=== PATIENT | female | born 2005 | race Hispanic/Latino ===

== ENCOUNTER 2024-07-03 16:10 | Emergency (ER) | payer SELFPAY ==
[~2024-07-03] VITALS: Ht 170.2 cm; Wt 127.0 kg
[2024-07-03 16:11] VITALS: BP 151/92
[2024-07-03 16:16] VITALS: PULSE 66; RESP 20; TEMP 98.8; O2SAT 100
--- NOTE | 2024-07-03 17:12 | ERN ---
ED Note History of Present Illness Stated Complaint: ANXIETY Chief Complaint: Anxiety/Panic Attack Time Seen by MD: 16:11 Time Seen by Midlevel: 16:11 Dictation: The patient is a 19-year-old female with a history of depression who presents to the emergency department after having a syncopal episode. Per mother patient was getting blood drawn at [facility] for medication refill when she saw the needle patient heart rate and blood pressure went down causing her to pass out for a few sec. Mother reports lasted about 5 seconds at around 3:30 p.m.. Patient currently just complaints of headache. No other complaints reported. Past Medical History Past Medical History: Anxiety, Bipolar, Depression Surgical History: None LMP: Jun 28, 2024 RN Note Reviewed/Agreed w/PFSH: Yes Review of System Dictation Constitutional: Negative for fever,chills, and weight loss Eyes: Negative for injury, pain,redness, and discharge ENT: Negative for injury,pain or swelling Cardiovascular: Negative for chest pain, palpitations, and edema Respiratory: Negative for shortness of breath, cough, and wheezing, Abdomen/GI: Negative for abdominal pain, nausea, vomiting, diarrhea, and constipation Back: Negative for injury and pain : Negative for injury, bleeding and discharge MS/Extremity: Negative for injury and deformity Skin: Negative for rash, and discoloration Neuro: Negative for weakness, numbness, tingling, and seizure positive for headache, syncope Psych: Negative for suicide ideation, homicidal ideation, and hallucinations Initial Vital Sign VS Vital Signs Date Time Temp Pulse Resp B/P (MAP) Pulse Ox O2 Delivery O2 Flow Rate FiO2 07/03/24 16:11 98.8 66 20 151/92 100 Room Air 0 07/03/24 16:16 21 Physical Exam Dictation Vital Signs reviewed General Appearance: Alert, oriented x 3, no acute distress, well developed, nourished. Head and Face: non-traumatic. Eyes: PERRL, pink conjunctivas, eyelid no trauma, anterior chamber with arcus s enilis. Ears: Pinnas intact and no signs of trauma or erythema ear canals clear and no discharge TM no erythema Nose: No discharge, no bleeding. Oropharynx: Mouth normal, tongue pink. pharynx clear,no erythema, tonsils no exudates, no abscesses noted, mucous membrane moist Neck: Supple, non-tender, no thyromegaly, no masses, no JVD, no bruits Breast:Deferred Chest:No tenderness, no crepitus, no paradoxical movement, no retractions Lungs:Clear, well-ventilated, symmetric, no rales, no wheezing, no rhonchi, no stridor, good breath sounds bilaterally Heart: Regular rate, regular rhythm, no murmur, no gallops Vascular: no peripheral edema, Abdomen: Soft, positive bowel sounds, nondistended, no guarding, nontender, no rebound, no masses no hepatomegaly, no splenomegaly, no Leblanc's sign, no hernias. Rectal: Deferred Genital: Deferred Neurological: Normal speech, motor function intact, sensory function intact , upper extremities equal in strength, lower extremities equal in strength Musculoskeletal: Neck nontender, full range of motion, back nontender, full range of motion, Extremities: nontender, full range of motion Skin: Color pink, dry, no turgor, no rash, no lacerations, no abrasions, no contusions. Lymphatic: Deferred Results (Laboratory/Radiology) Labs Reviewed?: Yes (Sinus rhythm) EKG: (+) rhythm EKG Comment: Date: 07/04/2023 Time:1716 Ventricular rate:60 MD interval:151 QRS duration:95 QT/QTc:441 EKG interpretation: Sinus rhythm Reviewed by ED Attending sinus rhythm no STEMI ED Course ED Course Orders Procedure Category Date Status Time 12 Lead Ekg Tracing- EKG 07/03/24 Logged Technical 16:40 Vital Signs Date Time Temp Pulse Resp B/P (MAP) Pulse Ox O2 Delivery O2 Flow Rate FiO2 07/03/24 16:16 98.8 66 20 100 Room Air* 0 21 07/03/24 16:11 98.8 66 20 151/92 100 Room Air 0 Medical Decision Making MDM The patient is a 19-year-old female with a history of depression who presents to the emergency department after having a syncopal episode. Per mother patient was getting blood drawn at [facility] for medication refill when she saw the needle patient heart rate and blood pressure went down causing her to pass out for a few sec. Mother reports lasted about 5 seconds at around 3:30 p.m.. Patient currently just complaints of headache. No other complaints reported. Patient's symptoms related to a vasovagal response after watching a needle. Patient currently in no acute distress, nontoxic appearance. Neurologically intact. We will be discharged to follow up with PCP. Patient was stable vital signs. Differential diagnosis: Syncope episode, vasovagal response, bradycardia Need for hospitalization: Patient does not meet criteria for hospitalization. There are no social concerns with this patient. DX & DISP Disposition: Discharge Departure Impression: Primary Impression: Vasovagal response Condition: Stable Additional Instructions: Is follow up with your primary doctor in 1-2 days. If symptoms worsen please return to ER. FOLLOW-UP WITH PRIMARY CARE PROVIDER IN 1 TO 2 DAYS. TAKE MEDICATIONS DIRECTED HERE IN THE EMERGENCY ROOM. OKAY TO CONTINUE HOME MEDICATIONS UNLESS OTHERWISE DISCUSSED DURING YOUR VISIT IN THE EMERGENCY ROOM TODAY. RETURN TO YOUR NEAREST EMERGENCY ROOM IF SYMPTOMS WORSEN OR IF THERE IS NO IMPROVEMENT. CALL 911 IF YOU NEED IMMEDIATE ASSISTANCE. TAKE TYLENOL OR MOTRIN [id number] NEEDED AND IF NO CONTRAINDICATIONS ARE PRESENT. INCREASE ORAL HYDRATION. A WOUND CULTURE OR URINE CULTURE WAS ORDERED HERE IN THE EMERGENCY ROOM DEPARTMENT PLEASE FOLLOW-UP WITH PRIMARY CARE PROVIDER AND ADVISE THEM TO GET REPEAT PORTS FROM OUR FACILITY. IF YOU HAD ANY WARREN WRAP/SPLINTS THAT WERE APPLIED HERE, PLEASE DO NOT REMOVE THEM UNTIL YOU SEE YOUR PRIMARY CARE OR SPECIALTY. Referrals: NONE (PCP) Time of Disposition: 17:29 I have reviewed the case, and I agree with, Diagnosis and Plan COYR JONES Jul 03, 2024 17:11
--- NOTE | 2024-07-03 18:51 | EKG ---
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
== END 2024-07-03 17:42 | disposition home or self-care (01) ==
LOC: EDH 16:10
DX: R55 Syncope and collapse (principal); F31.9 Bipolar disorder, unspecified; F41.9 Anxiety disorder, unspecified
CPT/HCPCS: 93005; 99283

== ENCOUNTER 2024-11-08 01:03 | Observation (INO) | payer SELFPAY ==
[2024-11-08] VITALS (7 sets, daily range): BP systolic 105–122; BP diastolic 54–74; PULSE 64–83; RESP 18–19; TEMP 97.7–98.1; O2SAT 94–95
[~2024-11-08] VITALS: Ht 170.2 cm; Wt 81.6 kg
--- NOTE | 2024-11-08 01:12 | ERN ---
General Chief Complaint: Low Back Pain/Injury Stated Complaint: NON TRAUMATIC LOWER BACK PAIN X 3 DAYS Time Seen by MD: 01:05 History of Present Illness Initial Comments 19-year-old obese female with low back pain that she finds incapacitating. Pain is in the middle of the back in the sacral region and also along her bilateral iliac crests. She has never had this kind of back pain before. No trauma. She did move cup of pieces of small furniture around yesterday but she has moved larger things and heavier things before without problems. She has full sensation in her bilateral lower extremities in his continent of stool and urine. Allergies: Coded Allergies: No Known Drug Allergies (Unverified Allergy, Unknown, 11/08/24) Past Medical History Past Medical History: Anxiety, Bipolar, Depression Past Surgical History: None Female( History) LMP: Oct 14, 2024 ROS Dictation Review of systems is negative beyond what is in the chief complaint in the HPI. Physical Exam General Appearance: (+) moderate distress General Appearance comment Patient is lying prone on the hospital bed as this is the only position that she finds comfortable. Orientation: (+) alert, (+) oriented x 3 Head/Face Trauma: No Eye: bilateral eye normal inspection, bilateral eye PERRL, bilateral eye EOMI Ear, Nose, Throat: (+) hearing grossly normal, (+) normal ENT inspection Neck: (+) normal inspection, (+) supple, (+) full range of motion Respiratory: (+) chest non-tender, (+) lungs clear Heart: (+) regular, (+) no gallop Vascular: (+) no edema, (+) normal peripheral pulse Gastrointestinal: (+) soft, (+) non-tender, (+) bowel sound present Back: (+) muscle spasm Back Comment Patient has a extreme muscle tenderness along both iliac crests. Extremities: (+) normal range of motion, (+) non-tender Neurologic/Psychiatric: (+) no motor defecits, (+) no sensory deficits Results Laboratory and Microbiology Lab and Micro Result Laboratory Tests Test 11/08/24 02:49 Urine Color YELLOW (YELLOW) Urine Appearance CLEAR (CLEAR) Urine pH 6.5 (5.0-8.0) Urine Specific [place] 1.031 (1.001-1.031) Urine Protein NEGATIVE mg/dL (NEGATIVE) Urine Glucose (UA) NEGATIVE mg/dL (NEGATIVE) Urine Ketones NEGATIVE mg/dL (NEGATIVE) Urine Occult Blood NEGATIVE (NEGATIVE) Urine Nitrate NEGATIVE (NEGATIVE) Urine Bilirubin NEGATIVE mg/dL (NEGATIVE) Urine Urobilinogen 0.2 mg/dL (0.2-1.0) Urine Leukocyte Esterase NEGATIVE Brian/uL Urine HCG, Qualitative NEGATIVE (NEGATIVE) MDM MDM: Differential diagnosis: Slipped intervertebral disc. Vertebral compression fractures. Spondylolisthesis. Muscle spasm. Lordosis. Rationale: Tests considered and ordered secondary to shared decision making include: Previous outside records reviewed: Old ER visits. Risk of complication and/or morbidity or mortality of patient management: None Medications-Per medication reconciliation Need for hospitalization: Patient does meet criteria for hospitalization. Need for emergency major/minor surgery: No There are no social concerns with this patient. Prescription drug management Prescriptions will include symptomatic care Patient's prior external medical records from other ER visits were reviewed by me as indicated. Prior testing and results from previous visits were reviewed. Prior tests were taken into account with medical decision making and resource utilization, independent historian/historians were used to obtain complete medical history. I independently interpreted the test that were performed, results were reviewed by me and considered findings on radiology if ordered. CT scan shows no fractures it is possible she has some spinal stenosis. In either case the patient can not walk despite multiple injections with muscle relaxants and Toradol and oral narcotics. I have called the hospitalist service and they have admitted her. ED Course Orders Procedure Category Date Status Time Ketorolac 60mg/2ml PHA 11/08/24 Complete (Toradol 60mg/2ml) 01:30 Triamcinolone Acet PHA 11/08/24 Complete 40mg/Ml 1ml (Kenalog 01:30 Orphenadrine Citrate PHA 11/08/24 Complete (Norflex) 01:30 Ct Lumbar Spine W/O CT 11/08/24 Resulted Contrast 01:23 ,Urine Test LAB 11/08/24 Complete 01:59 Urinalysis Profile LAB 11/08/24 Complete 02:35 Morphine 4mg Syg PHA 11/08/24 Complete (Morphine 4mg Syg) 03:00 Morphine 4mg Syg PHA 11/08/24 Complete (Morphine 4mg Syg) 03:00 Lactated Ringers PHA 11/08/24 Complete 1000ml (Lactated 03:30 Oxycodone/Acetamin PHA 11/08/24 Complete 5/325mg Tab (Percocet 04:30 Current Medications Medications (Trade) Dose Ordered Sig/Darrell Route PRN Reason Start Time Stop Time Status Last Admin Dose Admin Ketorolac Tromethamine (toRADol 60MG/ 2ML) 60 mg ONCE ONCE IM 11/08/24 01:30 11/08/24 01:31 DC 11/08/24 01:36 Lactated Ringer's (Lactated Ringers 1000ml) 1,000 ml ONCE ONCE IV 11/08/24 03:30 11/08/24 03:31 DC 11/08/24 03:27 Morphine Sulfate (morPHINE 4MG SYG) 4 mg ONCE ONCE IM 11/08/24 03:00 11/08/24 03:03 DC 11/08/24 03:06 Morphine Sulfate (morPHINE 4MG SYG) 4 mg ONCE ONCE IVP 11/08/24 03:00 11/08/24 02:54 DC Orphenadrine Citrate (Norflex) 60 mg ONCE ONCE IM 11/08/24 01:30 11/08/24 01:31 DC 11/08/24 01:37 Oxycodone/ Acetaminophen (perCOCET) 1 tab ONCE ONCE PO 11/08/24 04:30 11/08/24 04:31 DC 11/08/24 04:33 Triamcinolone Acetonide (Kenalog 40) 40 mg ONCE ONCE IM 11/08/24 01:30 11/08/24 01:31 DC 11/08/24 01:37 Vital Signs Date Time Temp Pulse Resp B/P (MAP) Pulse Ox O2 Delivery O2 Flow Rate FiO2 11/08/24 05:34 98.2 65 16 104/57 99 Room Air* 0 11/08/24 05:33 64 16 111/55 99 Room Air* 0 11/08/24 04:11 73 16 118/70 99 Room Air* 0 11/08/24 03:10 79 16 119/64 99 Room Air* 0 11/08/24 01:04 98.8 85 16 140/77 99 Room Air* 0 11/08/24 01:04 98.8 85 16 140/77 99 Room Air 0 DX & DISP Disposition: Inpatient Departure Impression: Primary Impression: Back pain at L4-L5 level Condition: Stable Referrals: NONE (PCP) ERON SHIRLEY MD Nov 08, 2024 01:12
[2024-11-08] MEDS: TRIAMCINOLONE ACETONIDE 40 MG/ML 1ML VIAL IM ONE (01:37)
[2024-11-08] MEDS: ORPHENADRINE 60MG/2ML IM ONE (01:37)
--- NOTE | 2024-11-08 02:03 | NUR ---
REFUSAL TO SUBMIT TO TREATMENT FOR A URINE TEST PRIOR TO THE ORDERED CT LUMBAR SPINE W/CONTRAST IS SIGNED AND PLACED IN THE PATIENT CHART. RADIOLOGY MADE AWARE.
[2024-11-08 03:02] LABS: APPEARANCE,URINE CLEAR (CLEAR); GLUCOSE, URINE (UA) NEGATIVE (NEGATIVE); LEUKOCYTE ESTERASE ,URINE NEGATIVE Leu/uL (NEGATIVE); NITRATE,URINE NEGATIVE (NEGATIVE); OCCULT BLOOD,URINE NEGATIVE (NEGATIVE)
[2024-11-08 03:10] LABS: ADD UA MICROSCOPIC NO
[2024-11-08] MEDS: LACTATED RINGERS 1000ML IV ONE (03:27)
--- NOTE | 2024-11-08 04:17 | HMCIMG ---
EXAM: CT Lumbar Spine Without IV Contrast CLINICAL HISTORY: Pain. TECHNIQUE: Spiral axial CT images through the lumbar spine were acquired, reconstructed in axial and sagittal projections and imaged using soft tissue and bone algorithms. Reformatted/MPR images were performed. CT scan is done according to ALARA (As Low as Reasonably Achievable). CONTRAST: None. COMPARISON: None provided. FINDINGS: No acute fracture. Mild straightening of the expected lumbar lordosis reflects paraspinal muscle spasm. Normal vertebral body and disc heights. Normal bone density. The surrounding soft tissues are unremarkable. Individual spinal levels are described as follows: T12-L1: No disc bulge or herniation. No neural foraminal, lateral recess or spinal canal stenosis. L1-L2: No disc bulge or herniation. No neural foraminal, lateral recess or spinal canal stenosis. L2-L3: No disc bulge or herniation. No neural foraminal, lateral recess or spinal canal stenosis. L3-L4: No disc bulge or herniation. No neural foraminal, lateral recess or spinal canal stenosis. L4-L5: No disc bulge or herniation. No neural foraminal, lateral recess or spinal canal stenosis. L5-S1: 6 mm broad-based posterior central to left paracentral disc protrusion, indenting the anterior thecal sac. Moderate left lateral recess narrowing with possible impingement on the left traversing S1 nerve root. Mild bilateral neural foraminal narrowing, more pronounced on the left side. No splenunculus gnosis. IMPRESSIONS: No acute fracture. Degenerative disc disease at L5-S1. /Sullivan
[2024-11-08] MEDS ORDERED: OXYC-762 PO (04:35)
[2024-11-08] MEDS ORDERED: ACET-2079 PO (05:11)
[2024-11-08] MEDS ORDERED: LACTULOSE 20 GM/30 ML UDCUP PO PRN (06:00)
[2024-11-08] MEDS ORDERED: BACLOFEN 10 MG TABLET PO SCH (06:10)
[2024-11-08 06:16] LABS: NUCLEATED RED BLOOD CELLS 0.0 % (0.0-0.19); PLATELET COUNT (AUTO) 237.0 K/uL (130-400); RED BLOOD CELL COUNT(AUTO) 4.53 MIL/uL (4.00-5.50); RED CELL DISTRIBUTION WIDTH 13.5 % (11.0-15.5); WHITE BLOOD COUNT (AUTO) 8.7 K/uL (4.8-10.8)
[2024-11-08 06:18] LABS: AMPHET/METH SCREEN,URINE NEGATIVE (NEGATIVE); BARBITURATE SCREEN, URINE NEGATIVE (NEGATIVE); CANNABINOID SCREEN,URINE NEGATIVE (NEGATIVE); COCAINE SCREEN,URINE NEGATIVE (NEGATIVE)
--- NOTE | 2024-11-08 06:20 | NUR ---
REPORT GIVEN TO ELIZABETH DE AT THIS TIME
[2024-11-08 06:42] LABS: ASPARTATE AMINOTRANSFERASE 19.0 U/L (10-37); CREATININE 0.6 mg/dL (0.5-1.0); GLOMERULAR FILTR. RATE CALC 131.0 mL/min (>90); GLUCOSE,RANDOM 101.0 mg/dL (70-105); SODIUM SERUM 136.0 mmol/L (136-145); TOTAL PROTEIN, SERUM 6.4 g/dL (6.0-8.3); UREA NITROGEN, BLOOD 13.0 mg/dL (7-18)
[2024-11-08] MEDS: CYCLOBENZAPRINE HCL 10 MG TABLET PO SCH (08:56)
[2024-11-08] MEDS: LIDOCAINE 4% ADH..PATCH TP SCH (08:57)
[2024-11-08] MEDS: ENOXAPARIN SODIUM 40 MG/0.4 ML SYRINGE SQ SCH (08:57)
--- NOTE | 2024-11-08 09:39 | HP ---
[facility] HISTORY AND PHYSICAL Date of Service: Nov 08, 2024 Time of Service: 09:24 HISTORY OF PRESENT ILLNESS: [ ] Admission date 11/08/2024 Chief complaint low back pain PCP self referral This is a 19-year-old female with no significant medical history presents in ED with chief complaints of severe low back pain. Onset three days ongoing. Location middle of the back in the sacral region. State 10/10 on pain scale on arrival, pain does not radiate describes pain as burning cessation. Patient took Tylenol [id number]. Patient reports two years ago had similar symptoms and was told when her disc were protruding. She denies any numbness tingling to lower extremities. Denies incontinence of stool and urine Patient reports no injury or recent falls. ED gave patient a dose of total of8 mg of morphine, Toradol 60 mg x and Triamcinolone 40 mg once. Patient came to ED for further evaluation and treatment ImagingNo acute fracture. Degenerative disc disease at L5-S1. Patient is seen in room 330 patient is lying on her left side pain is five over 10. She reports the pain is not as severe as she came in this morning. She d enies constipation. REVIEW OF SYSTEMS A14 point ROS was obtained all relevant positives documented otherwise ROS negative PAST MEDICAL HISTORY: [ ] Obesity PAST SURGICAL HISTORY: [ ] None PAST SOCIAL HISTORY: [ ] Denies smoking tobacco products and alcohol use Lives with sister and grandmother FAMILY HISTORY: [ ] Noncontributory Coded Allergies: No Known Drug Allergies (Unverified Allergy, Unknown, 11/08/24) PHYSICAL EXAM GENERAL APPEARANCE: The patient is awake, alert, obese and oriented, in no acute cardiopulmonary distress. NEUROLOGICAL: Cranial nerves II-XII grossly intact. Motor is 5/5 in bilateral upper and lower extremities proximal to distal. No sensory deficits. HEENT: Face is symmetric. Pupils are equal and reactive. Extraocular movements are intact. NECK: Supple. No JVD. No thyromegaly. No submental, submandibular, pre- /postauricular, occipital or supraclavicular lymphadenopathy. CHEST: Normal chest expansion. No Telemetry. LUNGS: Absence of any rales, rhonchi or any wheezing. CARDIOVASCULAR: Regular. S1 and S2 normal. No appreciable rubs, murmurs or gallops. ABDOMEN: Soft, nontender, and nondistended. large punnus There is no rebound, voluntary guarding, or rigidity. : Deferred. No Piper. EXTREMITIES: Non-edematous and not cyanotic. No clubbing. Good capillary refill. SKIN: No skin breakdown. Vital Sign (Last 24 Hours) 11/08/24 11/08/24 06:21 08:00 Temp 97.9 Pulse 65 Resp 18 B/P (MAP) 122/63 Pulse Ox 95 O2 Delivery Room Air O2 Flow Rate 0 FiO2 21 LABS: Laboratory: Test 11/08/24 06:05 11/08/24 02:49 Range/Units White Blood Count 8.7 4.8-10.8 K/uL Red Blood Count 4.53 4.00-5.50 MIL/uL Hemoglobin 12.4 12.0-16.0 g/dL Hematocrit 37.0 36-48 % Mean Corpuscular Volume 81.7 80-100 fL Mean Corpuscular Hemoglobin 27.4 27.0-33.0 pg Mean Corpuscular Hemoglobin Concent 33.5 32.0-36.0 g/dL Red Cell Distribution Width 13.5 11.0-15.5 % Platelet Count 237 130-400 K/uL Mean Platelet Volume 11.2 H 7.5-10.5 fL Nucleated Red Blood Cells 0.0 0.0-0.19 % Erythrocyte Sedimentation Rate 31 H 0-20 MM/HR Sodium Level 136 136-145 mmol/L Potassium Level 3.8 3.5-5.1 mmol/L Chloride Level 103 101-111 mmol/L Carbon Dioxide Level 24 21-32 mmol/L Blood Urea Nitrogen 13 7-18 mg/dL Creatinine 0.6 0.5-1.0 mg/dL Glomerular Filtration Rate Calc 131 >90 mL/min Random Glucose 101 70-105 mg/dL Total Calcium 8.4 L 8.5-10.1 mg/dL Total Bilirubin 0.3 0.2-1.0 mg/dL Aspartate Amino Transf (AST/SGOT) 19 10-37 U/L Alanine Aminotransferase (ALT/SGPT) 32 12-78 U/L Alkaline Phosphatase 62 50-136 U/L C-Reactive Protein, Quantitative 11.10 H 0.5-3.0 mg/L Total Protein 6.4 6.0-8.3 g/dL Albumin 2.8 L 3.5-5.0 g/dL Urine Color YELLOW YELLOW Urine Appearance CLEAR CLEAR Urine pH 6.5 5.0-8.0 Urine Specific [place] 1.031 1.001-1.031 Urine Protein NEGATIVE NEGATIVE mg/dL Urine Glucose (UA) NEGATIVE NEGATIVE mg/dL Urine Ketones NEGATIVE NEGATIVE mg/dL Urine Occult Blood NEGATIVE NEGATIVE Urine Nitrate NEGATIVE NEGATIVE Urine Bilirubin NEGATIVE NEGATIVE mg/dL Urine Urobilinogen 0.2 0.2-1.0 mg/dL Urine Leukocyte Esterase NEGATIVE NEGATIVE Brian/uL Urine HCG, Qualitative NEGATIVE NEGATIVE Urine Opiates Screen NEGATIVE NEGATIVE Urine Barbiturates Screen NEGATIVE NEGATIVE Urine Phencyclidine Screen NEGATIVE NEGATIVE Urine Amphetamines Screen NEGATIVE NEGATIVE Urine Benzodiazepines Screen NEGATIVE NEGATIVE Urine Cocaine Screen NEGATIVE NEGATIVE Urine Marijuana (THC) Screen NEGATIVE NEGATIVE Current Medications Medications (Trade) Dose Ordered Sig/Darrell Route PRN Reason Start Time Stop Time Status Last Admin Dose Admin Acetaminophen (TYLenol 325MG TAB) 650 mg Q6H PRN PO FEVER/MILD PAIN LEVEL 1-3 11/08/24 06:00 12/08/24 05:59 Acetaminophen (TYLenol 650MG SUPPOSITORY) 650 mg Q6H PRN RC FEVER / MILD PAIN 1-3 IF NPO 11/08/24 06:00 12/08/24 05:59 Baclofen (Baclofen) 10 mg TID PO 11/08/24 06:10 11/08/24 06:04 DC Cyclobenzaprine HCl (Cyclobenzaprine HCl) 10 mg TID PO 11/08/24 09:00 11/09/24 15:00 11/08/24 08:56 10 MG Docusate Sodium (COLace 100MG CAP) 100 mg BID PRN PO CONSTIPATION 11/08/24 06:00 12/08/24 05:59 Enoxaparin Sodium (Lovenox) 40 mg DAILY SQ 11/08/24 09:00 12/08/24 08:59 11/08/24 08:57 40 MG Ketorolac Tromethamine (toRADol) 30 mg Q6H PRN IM SEVERE PAIN (7-10) 11/08/24 06:00 11/13/24 05:59 Labetalol HCl (TRANdate 20MG SYG) 10 mg Q2H PRN IV SBP GREATER THAN 160 11/08/24 06:00 12/08/24 05:59 Lactulose (Constulose 20gm/ 30ml Udcup) 20 gm Q6H PRN PO CONSTIPATION 11/08/24 06:00 12/08/24 05:59 Lidocaine (Lidocaine Patch 4%) 1 each DAILY TP 11/08/24 09:00 12/08/24 08:59 11/08/24 08:57 1 EACH Ondansetron HCl (zoFRAN 4MG INJ) 4 mg Q6H PRN IVP NAUSEA/VOMITING 11/08/24 06:00 12/08/24 05:59 Temazepam (restORIL 15 MG CAP) 15 mg HS PRN PO INSOMNIA/SLEEP 11/08/24 06:00 12/08/24 05:59 DIAGNOSTICS / RADIOLOGY: [ ] REASON: LBP ORDERING PHYSICIAN: ERON SHIRLEY MD PROCEDURE: L SPIN WO - CT LUMBAR SPINE W/O CONTRAST EXAM: CT Lumbar Spine Without IV Contrast CLINICAL HISTORY: Pain. TECHNIQUE: Spiral axial CT images through the lumbar spine were acquired, reconstructed in axial and sagittal projections and imaged using soft tissue and bone algorithms. Reformatted/MPR images were performed. CT scan is done according to ALARA (As Low as Reasonably Achievable). CONTRAST: None. COMPARISON: None provided. FINDINGS: No acute fracture. Mild straightening of the expected lumbar lordosis reflects paraspinal muscle spasm. Normal vertebral body and disc heights. Normal bone density. The surrounding soft tissues are unremarkable. Individual spinal levels are described as follows: T12-L1: No disc bulge or herniation. No neural foraminal, lateral recess or spinal canal stenosis. L1-L2: No disc bulge or herniation. No neural foraminal, lateral recess or spinal canal stenosis. L2-L3: No disc bulge or herniation. No neural foraminal, lateral recess or spinal canal stenosis. L3-L4: No disc bulge or herniation. No neural foraminal, lateral recess or spinal canal stenosis. L4-L5: No disc bulge or herniation. No neural foraminal, lateral recess or spinal canal stenosis. L5-S1: 6 mm broad-based posterior central to left paracentral disc protrusion, indenting the anterior thecal sac. Moderate left lateral recess narrowing with possible impingement on the left traversing S1 nerve root. Mild bilateral neural foraminal narrowing, more pronounced on the left side. No splenunculus gnosis. IMPRESSIONS: No acute fracture. Degenerative disc disease at L5-S1. /[place] DICTATED BY: MARCELL ERWIN Jr., MD DATE: 11/08/24515 ASSESSMENT: Intractable low back pain POA Morbid obesity BMI 43.9 PLAN: [ ] 19-year-old female with intractable back pain patient will continue with pain management PRN, and cyclobenzaprine TID scheduled Admit: Medical floor condition: Fair Status: Full code IVF: NS at 75 mL/hour Labs cbc, cmp, mag+ TSH lipid panel A1c Replace electrolytes as needed as per protocol to keep potassium above 4.0 magnesium 2.0. Home medications pending to be reviewed by RN nurse. Weight management was discussed modified diet and exercise PRN: MEDICATIONS Tylenol 650 mg po every 4 hrs for fever zofran 4 mg IV every 6 hrs for n/v Labetalol 10 mg IV every 4 hrs systolic pressure > 160 bowel regiment: lactulose 20 gm PO BID PRN constipation Colace PRn Pain management: Tylenol No. 3 every4 hours as needed for moderate pain and morphine2 mg IV for severe every 4 hours Supportive measures: DVT ppx, GI ppx all questions answered time spent: > 35 min Supervising MD: Dr. Man c/d This document was generated in part using voice recognition software, occasional wrong word or sound alike substitutions may have occurred due to the inherent limitations of voice recognition software. Read the chart carefully and recognize using context, where the substitutions have occurred. Although every effort was made to edit the content, outpatient coder and typing errors may occur ADVANCED CARE PLANNING 1. Which of the following were discussed? Hospice Care - Yes / No Therapeutic options - Yes / No Advance Directives - Yes / No Other discussions - 2. Discussed with who? 3. Voluntary nature of this service was explained to the patient? Yes / No 4. Amount of time spent - 5. Reviewed by Physician? (if this service was performed by NPP) Yes / No ATTESTATION BY PHYSICIAN I have seen and examined the patient. I reviewed the documentation, medical decision making, and treatment plan as noted by the mid-level provider above. I agree with the findings and plan of care. ASYA MAN MD, ELIZABETH REMELT PAN TANK OPERATOR Nov 08, 2024 09:38
[2024-11-09 02:09] VITALS: BP 121/71; PULSE 74; RESP 17; TEMP 98.5
[2024-11-09 05:29] VITALS: BP 111/77; PULSE 84; RESP 17; TEMP 97.9
[2024-11-09 08:05] VITALS: O2SAT 96
[2024-11-09 09:48] VITALS: BP 128/81; PULSE 71; RESP 20; TEMP 98
[2024-11-09] MEDS ORDERED: CYCL-309 PO (09:53)
[2024-11-09] MEDS ORDERED: LIDO1ADH71 TP (09:53)
--- NOTE | 2024-11-09 09:55 | DS ---
Discharge Summary Hospital Course Summary: Admission date 11/08/2024 Chief complaint low back pain PCP self referral This is a 19-year-old female with no significant medical history presents in ED with chief complaints of severe low back pain. Onset three days ongoing. Location middle of the back in the sacral region. State 10/10 on chang n scale on arrival, pain does not radiate describes pain as burning cessation. Patient took Tylenol alci-feb-fkkqgmy. Patient reports two years ago had similar symptoms and was told when her disc were protruding. She denies any numbness tingling to lower extremities. Denies incontinence of stool and urine Patient reports no injury or recent falls. ED gave patient a dose of total of8 mg of morphine, Toradol 60 mg x and Triamcinolone 40 mg once. Patient came to ED for further evaluation and treatment ImagingNo acute fracture. Degenerative disc disease at L5-S1. Patient is seen in room 330 patient is lying on her left side pain is five over 10. She reports the pain is not as severe as she came in this morning. She denies constipation. 11/09/2024 patient is lying in bed patient denied received medication yesterday only while she was in ED patient reports ambulating to bathroom denies any tingling numbness to lower extremities. Patient is clinically stable for discharge advised patient to follow-up with PCP. All questions addressed patient can take Tylenol [id number] in prescribed Flexeril 10 mg p.o. b.i.d. as needed for back spasm. And lidocaine patch daily she verbalized understanding offers no new complaints. Assessment/Plan: discharged Dx's; Intractable low back pain POA improved Morbid obesity BMI 43.9 PLAN: [ ] ADMISSION DATE: 11/09/2024 DISCHARGE DATE: 11/08/2024 DISPOSITION: Home CONDITION: Stable WHARF WORKER(S): None FOLLOW UP APPOINTMENT(S): PCP 2-3 days PROCEDURES: None IMAGING (S) report attached to summary : Lumbar spine CAT scan MICROBIOLOGY: report attached to summary; none ACTIVITY: Ad carlos as tolerated HOME MEDICATIONS none profile NEW MEDICATIONS Flexeril 10 mg b.i.d. as needed for spasms, lidocaine patch apply daily to low back TEACHING: Instructed patient to do floor stretching. Fall precautions Emergency instructions: The patient was instructed to present to the nearest Emergency Department or call 911 should their symptoms return or worsen. Discharge Instructions: REASON: LBP ORDERING PHYSICIAN: ERON SHIRLEY MD PROCEDURE: L SPIN WO - CT LUMBAR SPINE W/O CONTRAST EXAM: CT Lumbar Spine Without IV Contrast CLINICAL HISTORY: Pain. TECHNIQUE: Spiral axial CT images through the lumbar spine were acquired, reconstructed in axial and sagittal projections and imaged using soft tissue and bone algorithms. Reformatted/MPR images were performed. CT scan is done according to ALARA (As Low as Reasonably Achievable). CONTRAST: None. COMPARISON: None provided. FINDINGS: No acute fracture. Mild straightening of the expected lumbar lordosis reflects paraspinal muscle spasm. Normal vertebral body and disc heights. Normal bone density. The surrounding soft tissues are unremarkable. Individual spinal levels are described as follows: T12-L1: No disc bulge or herniation. No neural foraminal, lateral recess or spinal canal stenosis. L1-L2: No disc bulge or herniation. No neural foraminal, lateral recess or spinal canal stenosis. L2-L3: No disc bulge or herniation. No neural foraminal, lateral recess or spinal canal stenosis. L3-L4: No disc bulge or herniation. No neural foraminal, lateral recess or spinal canal stenosis. L4-L5: No disc bulge or herniation. No neural foraminal, lateral recess or spinal canal stenosis. L5-S1: 6 mm broad-based posterior central to left paracentral disc protrusion, indenting the anterior thecal sac. Moderate left lateral recess narrowing with possible impingement on the left traversing S1 nerve root. Mild bilateral neural foraminal narrowing, more pronounced on the left side. No splenunculus gnosis. IMPRESSIONS: No acute fracture. Degenerative disc disease at L5-S1. /[place] DICTATED BY: MARCELL ERWIN Jr., MD DATE: 11/08/24515 ELECTRONICALLY SIGNED BY: MARCELL ERWIN Jr., MD DATE: 11/08/24515 Home Medications: Active Scripts Lidocaine (Lidocaine Pain Relief) 4 % Adh..patch, 1 EACH TP DAILY for 10 Days, #10 ADH.PATCH Prov:ANJELICA MURRELL NP 11/09/24 Cyclobenzaprine HCl (Cyclobenzaprine HCl) 10 Mg Tablet, 10 MG PO BID PRN for BACK PAIN MDD 20 mg for 10 Days, #15 TAB Prov:ANJELICA MURRELL NP 11/09/24 New Medications: Cyclobenzaprine HCl (Cyclobenzaprine HCl) 10 Mg Tablet 10 MG PO BID PRN for BACK PAIN MDD 20 mg for 10 Days, #15 TAB Lidocaine (Lidocaine Pain Relief) 4 % Adh..patch 1 EACH TP DAILY for 10 Days, #10 ADH.PATCH Time spent arranging discharge: 31-60 minutes ATTESTATION BY PHYSICIAN I have seen and examined the patient. I reviewed the documentation, medical decision making, and treatment plan as noted by the mid-level provider above. I agree with the findings and plan of care. ASYA SAMANIEGO MD, ELIZABETH NP Nov 09, 2024 09:54
--- NOTE | 2024-11-09 11:42 | NUR ---
DISCHARGE EDUCATION GIVEN TO PATIENT OVER EDUCATION AND DISCHARGE PLAN. PT VERBALIZED UNDERSTANDING. IV CATHETER REMOVED AND INTACT. PENDING TRANSPORTATION TO ARRIVE. Addendum: 11/09/24 at 1211 by KRISTAL NEAL LVN LVN PATIENT TAKEN DOWN VIA WHEELCHAIR TO PRIVATE CAR. NO FURTHER COMMENTS.
[2024-11-09 13:07] VITALS: BP 124/77; PULSE 83; RESP 18; TEMP 98.1
== END 2024-11-09 12:15 | disposition home or self-care (01) ==
LOC: EDH 01:03 → EDHIP 01:04 → 3AH 06:30
PROVIDERS: ADMIT Hospitalist; ATTEND Hospitalist
DX: M51.370 Other intervertebral disc degeneration, lumbosacral region with discogenic back pain only (principal); F31.9 Bipolar disorder, unspecified; F41.9 Anxiety disorder, unspecified; E66.01 Morbid (severe) obesity due to excess calories; Z68.41 Body mass index [BMI] 40.0-44.9, adult; Z79.899 Other long term (current) drug therapy; Z98.890 Other specified postprocedural states
CPT/HCPCS: 96372 ×2; 96360; 99285; 80053; 80305; 85027; 85651; 86140; 81003; 81025; 36415; 72131; G0378 ×35; J2270; J3301; J1885; J1650 ×2; J2360